=== PATIENT | female | born 1960 | race Caucasian/White ===

== ENCOUNTER → 2017-06-05 | Outpatient (CLI) | payer OTHER ==
[~2017-06-05] MED LIST: DIPH1TAB4 PO
[2017-06-05 11:20] LABS: AUTOMATED NEUTROPHIL # 3.5 TH/MM3 (1.8-7.7); BASOPHIL % 0.4 % (0.0-2.0); EOSINOPHIL # 0.1 TH/MM3 (0-0.4); EOSINOPHIL % 1.7 % (0.0-4.0); HEMATOCRIT 43.7 % (35.0-46.0); HEMOGLOBIN 15.1 GM/DL (11.6-15.3); LYMPH % 39.9 % (9.0-44.0); LYMPHOCYTE # 2.8 TH/MM3 (1.0-4.8); MEAN CELL VOLUME 89.8 FL (80.0-100.0); MEAN CORPUSCULAR HGB CONC 34.5 % (32.0-36.0); MONO % 7.4 % (0.0-8.0); MONOCYTE # 0.5 TH/MM3 (0-0.9); NEUT % 50.6 % (16.0-70.0); PLATELET COUNT 234 TH/MM3 (150-450); RED BLOOD COUNT 4.86 MIL/MM3 (4.00-5.30); RED CELL DISTRIBUTION WIDTH 14.3 % (11.6-17.2)
[2017-06-05 11:21] LABS: BACTERIA, URINE RARE /hpf; BILIRUBIN, URINE NEG (NEG); BLOOD, URINE NEG (NEG); GLUCOSE,URINE NEG (NEG); KETONE, URINE NEG (NEG); NITRITE,URINE NEG (NEG); PH, URINE 6.5 (5.0-8.5); URINE COLOR LIGHT-YELLOW (YELLW/STRAW); URINE LEUKOCYTE ESTERASE NEG (NEG)
[2017-06-05 11:46] LABS: ALBUMIN 4.1 GM/DL (3.4-5.0); ALT (GPT) 35 U/L (10-53); AST (GOT) 15 U/L (15-37); BICARBONATE 28.7 MEQ/L (21.0-32.0); BLOOD UREA NITROGEN 9 MG/DL (7-18); CALCIUM 9.1 MG/DL (8.5-10.1); CHLORIDE 106 MEQ/L (98-107); CREATININE 0.73 MG/DL (0.50-1.00); GLOMERULAR FILTRATION RATE 82 ML/MIN (>89); GLUCOSE,FASTING 84 MG/DL (74-99); SODIUM (NA) 139 MEQ/L (136-145)
[2017-06-05 11:48] LABS: ALKALINE PHOSPHATASE 110 U/L (45-117); TOTAL BILIRUBIN ADULT 0.7 MG/DL (0.2-1.0); TOTAL PROTEIN 7.7 GM/DL (6.4-8.2)
--- NOTE | 2017-06-05 18:27 | EKG ---
Date Performed: 06/05/2017 Time Performed: 11:00:30 PTAGE: 57 years EKG: Sinus rhythm POSSIBLE RIGHT VENTRICULAR CONDUCTION DELAY MINIMAL ST DEPRESSION BORDERLINE ECG NO PREVIOUS TRACING DOCTOR: Yara Nunez Interpretating Date/Time 06/05/2017 18:21:20
== END ==
LOC: CPRE 10:33
PROVIDERS: ATTEND Obstetrics & Gynecology Gynecology
DX: Z01.810 Encounter for preprocedural cardiovascular examination (principal); Z01.812 Encounter for preprocedural laboratory examination; R94.31 Abnormal electrocardiogram [ECG] [EKG]; N81.11 Cystocele, midline; N81.6 Rectocele
CPT/HCPCS: 36415; 80053; 81001; 85025; 93005

== ENCOUNTER → 2017-06-13 | Day surgery (SDC) | payer OTHER ==
--- NOTE | 2017-06-08 12:50 | MH ---
cc: MAGGY MCCAIN MD, PATRICIA C. MD DATE OF ADMISSION 06/13/2017 DATE OF 1960 REASON FOR ADMISSION Pelvic repair, anterior and storeperson repair. HISTORY OF PRESENT ILLNESS The patient is a 57-year-old white female, 3, para 3, who has issues with symptomatic pelvic organ prolapse. Her risk factors are heavy lifting and no estrogen replacement. She has had three vaginal deliveries, largest baby 8 pounds. PAST MEDICAL HISTORY Negative for heart, lung, liver disease, hypertension, diabetes or stroke. PAST SURGICAL HISTORY Noncontributory. 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 Natural menopause 3 years ago. OB HISTORY Three vaginal deliveries, largest baby 8 pounds. SOCIAL HISTORY Recently . Has good social support. No alcohol, tobacco or caffeine. FAMILY HISTORY Noncontributory. ALLERGIES None. MEDICATIONS None. REVIEW OF SYSTEMS As above. No chest pain, orthopnea, PND. No nausea, vomiting, fever or chills. No vaginal bleeding or discharge. No stress incontinence. Main symptoms of pelvic organ prolapse are pressure and heavy discomfort. No significant bladder or bowel dysfunction. PHYSICAL EXAMINATION VITAL SIGNS: She is afebrile. Vital signs are stable. Blood pressure is 120/70. Height 5 feet 9 inches, weight 150, BMI 22. GENERAL: The patient is alert and oriented in no acute distress. No signs of cognitive dysfunction or depression. HEENT: Within normal limits. NECK: Supple. No JVD. CHEST: Clear. HEART: Regular rate and rhythm. ABDOMEN: Soft, nontender. No hepatosplenomegaly. No CVA tenderness. PELVIC: On pelvic exam in the office we note Aa is 0; Ap is 0; point C is -6; genital hiatus is 8; perineal body is 4; total vaginal length is 10. Moderate hypermobility of urethra with 20 degree deviation from horizontal and no significant postvoid residual. Levator muscle strength is 3/5. Further exam under anesthesia. EXTREMITIES: Normal. No DVT signs. SKIN: Without rashes. NEUROLOGIC: Nonfocal. ASSESSMENT/PLAN Patient with symptomatic anterior and posterior compartment defect. We discussed management options. The thrombocythemia were discussed. The patient has opted for surgical repair. She is aware of the risks, benefits and alternatives to the planned procedure including damage to surrounding organs, bleeding, infection, failure of repair, dyspareunia, pelvic pain, de juwan incontinence and other neuromuscular issues. At this point the patient has made an informed choice to proceed. We anticipate an outpatient procedure. MD FERCHO Mcintosh/CHASITY /9:49 AM /12:21 PM
[~2017-06-13] VITALS: Ht 175.3 cm; Wt 69.1 kg
[~2017-06-13] MED LIST changes: +*MEPERIDINE 25 MG INJ VIAL PERIprocedural Use ONLY ONE; +ACETAMINOPHEN 1000 MG/100 ML 100 ML IV ONE; +CHLORHEXIDINE GLUCONATE 2 % 1 PACK (2 CLOTHS) TOPICAL PRN; +DEXAMETHASONE SOD PHOS 4 MG/ML VIAL IV ONE; +DO NOT ADM ANY ANTICOAGULANT DRUGS PRN; +ESTROGENS CONJUGATED VAG CREA 15 APPL/30 GM TUBE ONE; +FLUORESCEIN SOD 10% SOLN 500 MG/5 ML AMP ONE; +GLYCOPYRROLATE 1 MG/5 ML SYRINGE IV PUSH ONE; +KETOROLAC TROMETHAMINE 30 MG/ML (IVP) VIAL IV PUSH ONE; +KETOROLAC TROMETHAMINE 30 MG/ML (IVP) VIAL IV PUSH PRN; +LACTATED RINGER'S 1000 ML IV PRN; +LIDOCAINE 1%/EPINEPHrine 1:100,000 SOLN 30 ML VIAL ONE; +LIDOCAINE HCL 1% PF 5 ML SYRINGE OTHER ONE; +METOPROLOL TARTRATE 25 MG TAB PO PRN; +MIDAZOLAM HCL 2 MG/2 ML VIAL ONE; +NEOSTIGMINE 5 MG/5 ML SYRINGE IV PUSH ONE; +ONDANSETRON HCL 4 MG/2 ML VIAL IV ONE; +ONDANSETRON HCL 4 MG/2 ML VIAL IV PUSH ONE; +POVIDONE IODINE 5% (ANTISEPSIS KIT) 4 APPLICATIONS EACH NARE PRN; +PROPOFOL 200 MG/20 ML AMP IV ONE; +PROPOFOL 200 MG/20 ML AMP ONE; +ROCURONIUM INJ 50 MG/5 ML SYRINGE IV PUSH ONE; +SODIUM CHLORID 0.9% 500 ML IV PRN; +ceFAZolin 2 GM PREMIX 50 ML IV SCH; +traMADol HCL 50 MG TAB PO PRN
[2017-06-13 10:55] VITALS: BP 107/70; PULSE 67; RESP 16; TEMP 97.1; O2SAT 99
--- NOTE | 2017-06-13 11:06 | MP ---
cc: Edison Still MD, Christopher J MD DATE OF OPERATION: 06/13/2017 PREOPERATIVE DIAGNOSIS: Pelvic organ prolapse. POSTOPERATIVE DIAGNOSIS: 1. Midline cystocele, stage II, Code N81.11. 2. Stage III Rectocele, Code N81.6. 3. Stage II Uterovaginal prolapse, Code N99.3. PROCEDURES: 1. Anterior, posterior repair with enterocele repair, Code 82666. 2. Hysteropexy/Colpopexy, Code 68751. 3. Diagnostic cystoscopy, Code 52,000. ANESTHESIA: General endotracheal. BLOOD LOSS: 20 cc. SURGEON: Edison Still MD. COSTUMING SUPERVISOR: [place] Staff times two. FLUIDS: 60 crystalloid FINDINGS: External genitalia, normal Pop Q score Aa, is 0, Ap +2, Point C is -3, total vaginal length is 10, genital hiatus is 6. Perineal body is 4. Uterus is normal size, mobile, no adnexal mass. Following repair Aa -3, Ap -3, point C is -8, total vaginal length is 8, general hiatus is 6, perineal body is 4, rectal examination is normal. Cystoscopy shows normal trigone and good coaptation of urethra, ureteral orifices are patent times two, dome of base of bladder normal. SPECIMENS: None. COMPLICATIONS: None. DISPOSITION: 1. Recovery room stable. 2. Needle sponge counts correct. 3. DVT prophylaxis. 4. Sequential compression devices. 5. Antibiotic prophylaxis 2 grams Ancef IV. 6. Time out procedure and identification per protocol. INDICATION FOR PROCEDURE: The patient with symptomatic pelvic organ prolapse. PROCEDURE: The patient was taken to the operating room theater, identified, prepped and draped in usual fashion. Before the planned procedure she was in dorsal lithotomy position with careful attention applied to padding of legs in stirrups to avoid undue stress to neurovascular structures. The above findings noted, neurovascularly documented, Sant[place] catheter is placed. Methylene blue is instilled into the bladder. The anterior compartment was dealt with first. We infiltrated with epinephrine and lidocaine solution, we made a midline incision, reflected the vaginal mucosa from the perivesicular tissues with no spill of methylene blue. A colporrhaphy was preformed in the standard fashion with absorbable suture, vaginal mucosa was trimmed and hemostatic matrix was used to alleviate the need for packing. Cystoscopy showed normal trigone, cystoscopy with a 17 [address] bridge and a 70 degree scope showed normal trigone, good capitation of ureteral orifices patent times two, dome of base of bladder is normal. The patient has received IV Fluorecin dry and ureteral patency was easily documented. Posterior compartment still had significant defect. We infiltrated here with epinephrine, lidocaine solution, made the midline incision, took this up to the cervical junction. Reflexed the perirectal tissues. Enterocele was encountered and reduced with the light absorbable suture. A hysteropexy was preformed in an external peritoneal approach. The rectocele was repaired in standard fashion with light absorbable suture. Vaginal mucosa was trimmed, hemostatic matrix was used to ovate the need for packing, vaginal mucosa was closed. Good hemostasis, sutures lines were intact. Good vaginal depth and vaginal caliber was approximately 4 centimeters. Rectal examination following repair was unremarkable. The patient tolerated the procedure well. Sent to the recovery room in stable condition. MD MARY Pat/MEG , 10:01 AM , 11:05 AM MILY
== END | disposition home or self-care (01) ==
LOC: HSDC 06:00
PROVIDERS: ATTEND Obstetrics & Gynecology Gynecology
DX: N81.11 Cystocele, midline (principal); N81.6 Rectocele
CPT/HCPCS: 00942; 57265; J0131; J0690; J1100; J1885; J2175; J2250; J2405; J2710; J3010; J7120